=== PATIENT | female | born 1975 | race Caucasian/White ===

== ENCOUNTER 2023-07-22 07:15 | Day surgery (SDC) | payer BC ==
[2023-07-20 13:35] VITALS: BMI 45.5
--- NOTE | 2023-07-22 07:33 | P.GSHP ---
History of Present Illness H&P Date: 07/22/23 CHIEF COMPLAINT: GERD and colon screen HISTORY OF PRESENT ILLNESS: The patient is a 47-year-old female who presents with gastroesophageal reflux disease and need for colon screen. Upper and lower endoscopy were offered for further evaluation and management. PAST MEDICAL HISTORY: Please see list. PAST SURGICAL HISTORY: Please see list. MEDICATIONS: Please see list. ALLERGIES: Please see list. SOCIAL HISTORY: No illicit drug use FAMILY HISTORY: No reports of Crohn disease or ulcerative colitis. REVIEW OF ORGAN SYSTEMS: CONSTITUTIONAL: No reports of fevers or chills. GI: Denies any blood in stools or constipation. PHYSICAL EXAM: VITAL SIGNS: Stable GENERAL: Well-developed pleasant in no acute distress. HEENT: No scleral icterus. Extraocular movements grossly intact. Moist buccal mucosa. NECK: Supple without lymphadenopathy. CHEST: Unlabored respirations. Equal bilateral excursions. CARDIOVASCULAR: Regular rate and rhythm. Distal 2+ pulses. ABDOMEN: Soft, nondistended. MUSCULOSKELETAL: No clubbing, cyanosis, or edema. ASSESSMENT: 1. Gastroesophageal reflux disease 2. Colon screen. PLAN: 1. Recommend proceeding with an upper and lower endoscopy Past Medical History Past Medical History: GERD/Reflux, Sleep Apnea/CPAP/BIPAP Additional Past Medical History / Comment(s): pre diabetic, cpap History of Any Multi-Drug Resistant Organisms: None Reported Past Surgical History: Back Surgery, Hysterectomy, Tonsillectomy Additional Past Surgical History / Comment(s): bunionectomy, laminectomy, colonoscopy Past Anesthesia/Blood Transfusion Reactions: No Reported Reaction Additional Past Anesthesia/Blood Transfusion Reaction / Comment(s): no blood transfusion Past Psychological History: No Psychological Hx Reported, Anxiety Smoking Status: Former smoker Additional Past Alcohol Use History / Comment(s): quit 2015 cigarrettes vaping quit in 2019 Past Drug Use History: None Reported Medications and Allergies Home Medications Medication Instructions Recorded Confirmed Type Biotin 2,500 mcg PO DAILY 07/20/23 07/20/23 History Calcium Carbonate [Calcium] 600 mg PO DAILY 07/20/23 07/20/23 History Fexofenadine/Pseudoephedrine 1 tab PO DAILY 07/20/23 07/20/23 History [Lalita-D 24 Hour Tablet] Pantoprazole [Protonix] 40 mg PO BID 07/20/23 07/20/23 History Allergies Allergy/AdvReac Type Severity Reaction Status Date / Time sulfamethoxazole AdvReac Rash/Hives Verified 07/20/23 13:27 [From Bactrim] trimethoprim [From Bactrim] AdvReac Rash/Hives Verified 07/20/23 13:27 [email or web address] [From Chantix] AdvReac Rash/Hives Verified 07/20/23 13:27
[2023-07-22] MEDS ORDERED: LACTATED RINGERS 1,000 ML IV SCH (07:34)
[2023-07-22 07:44] VITALS: RESP 16; TEMP 97.3
[2023-07-22] MEDS: IV FLUID CONTINUATION 1,000 ML IV ONE (07:47)
[2023-07-22] MEDS: LACTATED RINGERS 1,000 ML IV SCH (07:47)
[2023-07-22] MEDS: LIDOCAINE 1% (10MG/ML) FOR IV START INTRADERMA PRN (07:47)
[2023-07-22 08:06] LABS: Glucose,Whole Blood 117 mg/dL (70-110)
[2023-07-22] MEDS ORDERED: LIDOCAINE 1% INJ 10MG/ML (20 ML MDV) ONE (08:12)
[2023-07-22] MEDS ORDERED: PROPOFOL 10 MG/ML 20 ML VIAL IV ONE (08:12)
--- NOTE | 2023-07-22 08:22 | P.PCN ---
Date of Procedure: 07/22/23 Description of Procedure: PREOPERATIVE DIAGNOSIS: Gastroesophageal reflux disease. Morbid obesity. POSTOPERATIVE DIAGNOSIS: Gastroesophageal reflux disease. Morbid obesity. Gastritis, chronic Gastric polyps OPERATION: Esophagogastroduodenoscopy with biopsies along esophagus, antrum and duodenum SURGEON: Cheryl Quispe MD ANESTHESIA: MAC. INDICATIONS: The patient is a 47-year-old female who presents with epigastric abdominal pain and reflux disease. Benefits and risks of the procedure were described. Informed consent was obtained. DESCRIPTION: The patient was brought into the endoscopy suite and laid in the left lateral decubitus position. An Olympus gastroscope was passed along the posterior oropharynx down to the distal esophagus where the squamocolumnar junction was encountered at 40 cm from the incisors. The stomach was entered and no bile reflux was found. Additional findings are listed below. Biopsies with cold forceps were obtained of the antrum. The first through third portion of the duodenum was examined. Retroflexion of the scope confirmed Hill grade 1 lower esophageal valve. The squamocolumnar junction demonstrated LA grade B erosive esophagitis. The stomach was desufflated. The patient tolerated the procedure well. FINDINGS: Squamocolumnar junction 40 cm from the incisors. Diaphragmatic hiatus at 40 cm. Hill grade 1 lower esophageal valve. LA grade A erosive esophagitis. Biopsies obtained. Biopsies obtained of the duodenum. Chronic gastritis with biopsies obtained. Gastric polyps identified RECOMMENDATIONS: Upper endoscopy as needed.
--- NOTE | 2023-07-22 08:35 | P.PCN ---
Date of Procedure: 07/22/23 Description of Procedure: PREOPERATIVE DIAGNOSIS: Colonoscopy screening. POSTOPERATIVE DIAGNOSIS: Colonoscopy screening. Diverticulosis, scattered. OPERATION: Colonoscopy to the cecum, ileocecal valve and appendiceal orifice. SURGEON: Cheryl Quispe MD. ANESTHESIA: MAC. INDICATIONS: The patient is a 47-year-old female who presents for colonoscopy screening. Benefits and risks were described and informed consent was obtained. DESCRIPTION OF PROCEDURE: The patient had undergone GoLytely prep. The patient had been brought into the operating room and laid in the left lateral decubitus position. After adequate intravenous sedation, the rectum was examined with 2% lidocaine jelly. External hemorrhoids were encountered. The rectal tone was within normal limits. No lesions were palpated in the rectal vault. An Olympus colonoscope was advanced until the cecum, ileocecal valve and appendiceal orifice were clearly viewed. The prep was excellent. Scattered diverticulosis was encountered. No colonic polyps were found. No evidence of focal colitis was found. Retroflexion of the scope demonstrated grade 2 internal hemorrhoids without active bleeding or inflammation. The colon was desufflated. The patient had tolerated the procedure well. Withdrawal time was over 6 minutes. FINDINGS: Aronchick preparation quality scale 1+ (1-5) Internal hemorrhoids, grade 2 External hemorrhoids, grade 2 No external prolapsed hemorrhoids. No arteriovenous malformations. No adenomatous polyps. No focal colitis. RECOMMENDATIONS: Lower endoscopy in 10 years, 2033 Plan - Discharge Summary Discharge Rx Participant: No New Discharge Prescriptions: Continue Fexofenadine/Pseudoephedrine [Lalita-D 24 Hour Tablet] 1 tab PO DAILY Pantoprazole [Protonix] 40 mg PO BID Calcium Carbonate [Calcium] 600 mg PO DAILY Biotin 2,500 mcg PO DAILY Discharge Medication List Biotin 2,500 mcg PO DAILY 07/20/23 [History] Calcium Carbonate [Calcium] 600 mg PO DAILY 07/20/23 [History] Fexofenadine/Pseudoephedrine [Lalita-D 24 Hour Tablet] 1 tab PO DAILY 07/20/23 [History] Pantoprazole [Protonix] 40 mg PO BID 07/20/23 [History] Follow up Appointment(s)/Referral(s): Cheryl Quispe MD [STAFF PHYSICIAN] - 08/18/23 10:15 am Patient Instructions/Handouts: Diverticulosis Diet (GEN), Diverticulosis (DC), Gastritis (DC) Discharge Disposition: HOME SELF-CARE
[2023-07-22 08:54] VITALS: BP 130/81; PULSE 68
== END 2023-07-22 09:10 | disposition home or self-care (01) ==
LOC: ORWHC2ENDO 07:15
PROVIDERS: ATTEND Surgery Plastic and Reconstructive Surgery
DX: Z12.11 Encounter for screening for malignant neoplasm of colon (principal); K29.50 Unspecified chronic gastritis without bleeding; K31.7 Polyp of stomach and duodenum; K21.00 Gastro-esophageal reflux disease with esophagitis, without bleeding; K57.30 Diverticulosis of large intestine without perforation or abscess without bleeding; E66.01 Morbid (severe) obesity due to excess calories; G47.33 Obstructive sleep apnea (adult) (pediatric); E11.9 Type 2 diabetes mellitus without complications; Z79.899 Other long term (current) drug therapy; Z87.891 Personal history of nicotine dependence; Z88.1 Allergy status to other antibiotic agents; Z88.2 Allergy status to sulfonamides
CPT/HCPCS: 88305; 45378; 43239; J2001; J2704